=== PATIENT | female | born 1975 | race Two or more races ===

== ENCOUNTER 2017-10-20 18:44 | Emergency (ER) | payer OTHER ==
[2017-10-20] MEDS ORDERED: ACETAMINOPHEN 325 MG TABLET PO ONE (19:22)
--- NOTE | 2017-10-20 19:23 | ER Document Report ---
ED Medical Screen (RME) - General Chief Complaint: Fever Stated Complaint: FEVER Time Seen by Provider: 10/20/17 18:55 Mode of Arrival: Ambulatory Information source: Patient Notes: This is a pleasant 42-year-old female who does have a history of diabetes ( presently she is not on any diabetic medicines, previously on metformin), 1-1/2 pack per day smoker who presents to the emergency room not feeling well today. Patient is an event av operator at [employer] and was moving furniture today and felt weak, started having sharp sticking right chest discomfort, cough and tingling sensation throughout her body. She did develop a fever of 103.7 afterwards and came to the emergency room for evaluation. In the ER she sounds congested, she does have a nonproductive cough. Her temperature is 102.7, blood pressure is stable, mildly tachycardic with the fever, oxygen saturation 95% on room air. Her Accu-Chek is 107. Past medical history: Diabetes (has been on metformin in the past) DVT in the past (completed treatment regimen with Coumadin). Social: Cigarettes: 1-1/2 packs per day TRAVEL OUTSIDE OF THE [place] IN LAST 30 DAYS: No - HPI Onset: Just prior to arrival Onset/Duration: Gradual Quality of pain: Sharp, Stabbing Severity: Mild Associated Symptoms: Cough (nonproductive), Fever, Weakness. denies: Shortness of breath Exacerbated by: Denies Relieved by: Denies Similar symptoms previously: No Recently seen / treated by doctor: No - Related Data Smoking: Cigarettes Frequency of alcohol use: None Drug Abuse: None Allergies/Adverse Reactions: No Known Allergies Allergy (Verified 10/20/17 18:45) Past Medical History - General Information source: Patient - Social History Cigarette use (# per day): Yes - 1-1/2 packs per day Chew tobacco use (# tins/day): No Frequency of alcohol use: Occasional Drug Abuse: None Lives with: Family Family history: None - Past Medical History Cardiac Medical History: Reports: Hx DVT Endocrine Medical History: Reports: Hx Diabetes Mellitus Type 2 Renal/ Medical History: Denies: Hx Peritoneal Dialysis GI Medical History: Reports: Hx Gastroesophageal Reflux Disease Past Surgical History: Reports: Hx Vascular Surgery - DVT in left leg - Immunizations Hx Diphtheria, Pertussis, Tetanus Vaccination: Yes Review of Systems - Review of Systems Constitutional: Chills, Fever EENT: Nose congestion, Sinus pressure, Sinus discharge Cardiovascular: No symptoms reported Respiratory: Cough Gastrointestinal: No symptoms reported Genitourinary: No symptoms reported Female Genitourinary: No symptoms reported Musculoskeletal: No symptoms reported Skin: No symptoms reported Hematologic/Lymphatic: No symptoms reported Neurological/Psychological: Other - Headache Physical Exam - Vital signs Vitals: Temp Pulse Resp BP Pulse Ox 102.7 F H 118 H 20 124/70 95 10/20/17 18:56 10/20/17 18:56 10/20/17 18:56 10/20/17 18:56 10/20/17 18:56 Notes: Physical exam: GENERAL: 42-year-old female, alert and oriented 3, no acute distress. Patient looks good. She does look congested. She is febrile. HEAD: Atraumatic, normocephalic. EYES: Pupils equal round and reactive to light, extraocular movements intact, sclera anicteric, conjunctiva are normal. ENT: TMs normal, patient does have sinus/maxillary congestion, oropharynx clear without exudates. Throat is clear, moist mucous membranes. NECK: Normal range of motion, supple without obvious mass . LUNGS: Breath sounds clear to auscultation bilaterally and equal. No wheezes rales or rhonchi. HEART: Regular rate and rhythm without murmurs, rubs or gallops. ABDOMEN: Soft, normoactive bowel sounds. No tenderness to palpation. No guarding, no rebound. No masses appreciated. EXTREMITIES: Normal range of motion, no pitting or edema. No clubbing or cyanosis. NEUROLOGICAL: Cranial nerves II through XII grossly intact. Normal speech, moving all extremities. No neck stiffness. No photophobia. No signs of meningismus. Patient looks good, joking around in triage. PSYCH: Normal mood, normal affect. SKIN: Warm, Dry, normal turgor, no rashes or lesions noted. Course - Re-evaluation Re-evalutation: 10/20/17 20:34 Note: Patient's neck is quite supple and she has absolutely no meningeal signs he is no signs of meningitis at this time. She does seem very congested and appears to have an acute sinusitis. Given her underlying diabetes and smoking, I have opted to treat her with antibiotics. I have referred her to a primary care doctor and given her good instructions on symptoms that she should return to the emergency room for. - Vital Signs Vital signs: Temp Pulse Resp BP Pulse Ox 102.7 F H 118 H 20 124/70 95 10/20/17 18:56 10/20/17 18:56 10/20/17 18:56 10/20/17 18:56 10/20/17 18:56 - Diagnostic Test Radiology reviewed: Image reviewed, Reports reviewed - Chest x-ray shows no obvious infiltrates - EKG Interpretation by [place] Rate: Tachycardia Rhythm: NSR - EKG shows sinus tachycardia with a ventricular rate of 108, no acute ST-T wave changes Doctor's Discharge - Discharge Clinical Impression: Sinusitis Condition: Stable Disposition: HOME, SELF-CARE Additional Instructions: Recommendations: Rest, drink plenty of fluids, take ibuprofen: 400 mg every 6 hours for the next few days. Take Tylenol: 1 g every 6 hours while awake for the next 2 days. Take oxycodone as needed for pain not relieved by the ibuprofen or Tylenol. Take the Augmentin as prescribed. Use "simply saline": This is a saline nasal spray and you should spray both nostrils vigorously once or twice a day to keep the sinuses draining. If the sinuses can drain effectively, they will heal quicker. Return to the emergency room for worsening headache, light bothering the eyes, neck stiffness or any concerns or getting worse. I left below the number for some internal medicine physicians that are affiliated with this [facility]. Call and make an appointment. Dr. Kwame Chin [address], [place] [address] [phone] Dr Quintana Address: [address] [place] [address] [place] [id number] Moore Address: [address] [place] [address] [place] [address] Prescriptions: Oxycodone HCl 5 mg PO Q6HP PRN #14 tablet PRN Reason: Amox Tr/Potassium Clavulanate [Augmentin 875-125 mg Tablet] 1 tab PO BID #20 tablet Forms: Return to Work
[2017-10-20] MEDS ORDERED: OXYCODONE HCL IR 5 MG TABLET PO ONE (19:47)
[2017-10-20] MEDS ORDERED: AMOXICILLIN TR/POT CLAVULANATE 500-125 MG TAB PO ONE (19:48)
--- NOTE | 2017-10-20 19:50 | RADIOLOGY REPORT (SQ) ---
EXAM DESCRIPTION: CHEST 2 VIEWS COMPLETED DATE/TIME: 10/20/2017 7:28 pm REASON FOR STUDY: chest pain COMPARISON: None. EXAM PARAMETERS: NUMBER OF VIEWS: two views TECHNIQUE: Digital Frontal and Lateral radiographic views of the chest acquired. RADIATION DOSE: NA LIMITATIONS: none FINDINGS: LUNGS AND PLEURA: No consolidation, pneumothorax or pleural effusion. MEDIASTINUM AND HILAR STRUCTURES: No masses or contour abnormalities. HEART AND VASCULAR STRUCTURES: Heart normal size. No evidence for failure. BONES: No acute findings. HARDWARE: None in the chest. IMPRESSION: No acute radiographic finding in the chest. TECHNICAL DOCUMENTATION: JOB ID: [id number] [employer]- All Rights Reserved Reading location - IP/workstation name: [email or web address]
[2017-10-20 20:39] VITALS: BP 101/50
--- NOTE | 2017-10-22 07:39 | EKG REPORT ---
SEVERITY:- ABNORMAL ECG - SINUS TACHYCARDIA LEFT ATRIAL ABNORMALITY NONSPECIFIC T ABNORMALITIES, DIFFUSE LEADS : Confirmed by: Ruperto Barragan MD 22-Oct-2017 07:39:18
== END 2017-10-20 20:38 | disposition home or self-care (01) ==
LOC: ER 18:44
DX: J32.9 Chronic sinusitis, unspecified (principal); R50.9 Fever, unspecified; E11.9 Type 2 diabetes mellitus without complications; F17.210 Nicotine dependence, cigarettes, uncomplicated; R00.0 Tachycardia, unspecified; R20.2 Paresthesia of skin; R53.1 Weakness; R09.89 Other specified symptoms and signs involving the circulatory and respiratory systems; R05 Cough; R09.81 Nasal congestion; Z86.718 Personal history of other venous thrombosis and embolism
CPT/HCPCS: 71046; 82962; 87070; 87880; 93005; 93010; 99284

== ENCOUNTER 2018-11-01 00:03 | Emergency (ER) | payer OTHER ==
--- NOTE | 2018-11-01 04:44 | ER Document Report ---
HPI - HPI Patient complains to provider of: L ear laceration Time Seen by Provider: 11/01/18 04:34 Pain Level: 3 Context: Healthy 43-year-old female presents the emergency department for a laceration sustained behind her left ear. She was cleaning her tub and she says that up and hit the faucet. She said her brother looked at it and thought that she may need stitches so she came to the emergency department. She denies any significant blow to the head, denies loss of consciousness, denies dizziness or lightheadedness, denies vision changes, denies any hearing loss. No other complaints - REPRODUCTIVE Reproductive: DENIES: : Past Medical History - Social History Smoking Status: Unknown if Ever Smoked Family History: Reviewed & Not Pertinent - Past Medical History Cardiac Medical History: Reports: Hx DVT Endocrine Medical History: Reports: Hx Diabetes Mellitus Type 2 Renal/ Medical History: Denies: Hx Peritoneal Dialysis GI Medical History: Reports: Hx Gastroesophageal Reflux Disease Past Surgical History: Reports: Hx Vascular Surgery - DVT in left leg - Immunizations Hx Diphtheria, Pertussis, Tetanus Vaccination: Yes Vertical Provider Document - CONSTITUTIONAL Notes: PHYSICAL EXAMINATION: Reviewed vital signs and charting by RN GENERAL: Alert, interacts well. No acute distress. HEAD: Normocephalic, atraumatic. EYES: Pupils equal and round. Extraocular movements intact. ENT: Oral mucosa moist, tongue midline. Small 3 cm linear laceration on the back of the left ear with minimal bleeding after cleaning the scab NECK: Full range of motion. Trachea midline. EXTREMITIES: Moves all 4 extremities spontaneously. No edema, No cyanosis. PSYCH: Normal affect, normal mood. SKIN: Warm, dry, normal turgor. No rashes or lesions noted. - INFECTION CONTROL TRAVEL OUTSIDE OF THE [place] IN LAST 30 DAYS: No Course - Re-evaluation Re-evalutation: 11/01/18 04:47 Clean linear laceration. Wound cleaned and debrided. Dermabond placed on the wound and it approximated did patient tolerated procedure well. Patient given her strict return precautions and care instructions. Stable for discharge. Procedures - Laceration/Wound Repair Left Head Wound length (cm): 3 Wound's Depth, Shape: Superficial, Linear Wound Repaired With: Dermabond Discharge - Discharge Clinical Impression: Laceration Condition: Good Disposition: HOME, SELF-CARE Additional Instructions: You were seen in the emergency department this morning for a laceration of your left ear. Because the wound was so clean it was certainly worth the chance to use Dermabond instead of suturing it. Please keep a close eye on it over the weekend. The ear does take a little bit longer to heal because it is cartilage and not quite as vascular as other areas like your scalp or face. Please follow-up with your doctor early next week if the Dermabond does fail as it could potentially need sutures. Dermabond typically has a high success rate, though. Please return to the emergency department or see her primary doctor if you develop a fever, redness and warmth of your ear, swelling of the ear, or purulent discharge from your ear. If you have any other concerns please return to the emergency department.
[2018-11-01 05:06] VITALS: BP 152/84
== END 2018-11-01 05:06 | disposition home or self-care (01) ==
LOC: ER 00:03
DX: S01.312A Laceration without foreign body of left ear, initial encounter (principal); W22.09XA Striking against other stationary object, initial encounter; Y93.E9 Activity, other interior property and clothing maintenance; E11.9 Type 2 diabetes mellitus without complications
CPT/HCPCS: 99282